=== PATIENT | male | born 1955 | race Caucasian/White ===

== ENCOUNTER 2016-11-20 11:36 | Emergency (ER) | payer MEDICAID ==
[2016-11-20 11:45] VITALS: BP 155/93; BMI 21.1
--- NOTE | 2016-11-20 12:20 | DR.GENAD ---
HPI - PCP Primary Care Physician: NFD - HPI Comment HPI Comment: S/P STROKE AND ANEURYSM LAST APRIL WITH RESIDUAL RIGHT SIDED WEAKNESS. STARTED FEELING BAD. GOT SUN BURN YESTERDAY. RUNNING FEVER FOR 2 DAYS. - Complaint/Symptoms Chief Complaint Doctors Comments: GENERALIZE WEAKNESS, FEVER AND SUN BURN TIMES 2 DAYS. Chief Complaint:: PATIENTS FAMILY STATED HE HAD A STROKE BACKLAST APRIL, AND HAS BEEN IN [place]. RETURN HOME 3 WEEKS AGO, HAS BEEN RUNNING A FEVER, PALE AND FEELING BAD PER HIS . - Nurses notes reviewed Nurses Notes Review: Yes - Source History Provided: Family Member - Mode of Arrival Mode of Arrival: Wheelchair - Timing Onset of Chief Complaint: 11/19/16 Came on: Suddenly - Duration Duration: Constant Duration: Days - Severity Severity: Moderate PMH - PMH Past Medical History: Yes Past Medical History: Depression, GERD, Hypertension, Seizures Past Surgical History: Yes Past Surgical History Comment: HERNIA, SKULL REMOVED FROM SHREYAS BLEED - Family History History of Family Medical Conditions: No - Social History Does patient currently use any type of tobacco product: Yes Have you used tobacco products in the last 12 months: Yes Type of Tobacco Use: Cigarettes How many years tobacco product used: 25 Does any household member use tobacco: No Alcohol Use: None Do you use any recreational Drugs:: No Lives With: Family Lives Where: Home - infectious screening In the last 2 months have you had wt loss of >10#?: NO Have you had fever, night sweats or hemotysis?: No Have you traveled outside the country in the last 6 months?: No Isolation: Standard ROS - Review of Systems Constitutional: Fever, Malaise, Weakness, Fatigue, Other (SUN BURN). negative: Chills Eyes: negative: Eye Pain, Blurred Vision, Discharge ENTM: No Symptoms Reported. negative: Ear Pain, Nose Discharge, Nose Congestion , Throat Pain Respiratoy: Non-Productive Cough. negative: Productive Cough, Short of Breath, Wheezing, Hemoptysis Cardiovascular: Chest Pain, Edema. negative: Palpitations, Syncope Gastrointestinal/Abdominal: No Symptoms Reported. negative: Abdominal Pain, Constipation, Diarrhea, Nausea, Vomiting Genitourinary: Pain. negative: Hematuria, Bleeding Neurological: Headache, Pre-existing Deficit, Weakness, Dizziness, Speech Problem Musculoskeletal: Back Pain, Muscle Pain Integumentary: Other (FIRST DEGREE SUN BURN.) Hematologic/Lymphatic: Easy Bleeding, Easy Bruising Endocrine: negative: Flushing, Increased Thirst, Increased Urine All Other Systems: Reviewed and Negative PE - Vital Signs Vitals: Temperature 100.2 F Pulse Rate 114 Respiratory Rate 16 Blood Pressure 155/93 O2 Sat by Pulse Oximetry 100 - General Limitations: No Limitations, Other (DYSARTHRIA) General Appearance: Alert - Head Head Exam: Other (POST CRANIOTOMY WITH SCARS.) - Eyes Eye exam: PERRL. negative: Scleral Icterus, Conjunctival Injection - ENT ENT Exam: Normal External Ear Exam External Ear Exam: Normal External Inspection TM/Canal Exam: Bilateral Normal Nose Exam: Normal Nose Exam Mouth Exam: Normal Inspection Throat Exam: Normal Inspection - Neck Neck Exam: Trachea Midline - Chest Chest Inspection: Symmetric Chest Wall Rise - Respiratory Respiratory Exam: negative: Chest Wall Tenderness, Respiratory Distress Respiratory Exam: Bilateral Rhonchi, Lower Rhonchi - Cardiovascular Cardiovascular Exam: Regular Rate, Normal Rhythm, Normal Heart Sounds - Abdominal Exam Abdominal Exam: Normal Bowel Sounds, Soft. negative: Tenderness - Extremities Extremities Exam: Tenderness, Edema, Joint Swelling - Back Back Exam: Paraspinal Tenderness - Neurologic Neurological Exam: Alert. negative: Oriented X3 (TO PERSON) - Psychiatric Psychiatric Exam: Anxious - Skin Skin Exam: Erythema, Other (FIRST DEGREE BURN FACE AND EXTREMITIES.) MDM - Additional Information Additional Information Obtained From: Family ( IN ED WITH PATIENT, HIS PRIMARY INSIDE WIRER.) - Differential Diagnosis Differential Diagnosis: GENERALIZE WEAKNESS, UTI, PNEUMONIA, FEVER, PREVIOUS RT SIDED WEAKNESS Course - Treatment Treatment: SEE ORDERS - Education/Counseling Education/Counseling: Patient, Family, Education Educated On: Treatment, Diagnosis, Needs for Follow Up ROR - Labs Reviewed Laboratory Results Reviewed?: Yes Result Diagrams: 11/20/16 12:57 11/20/16 12:57 Laboratory: WBC 9.9 X10^3/uL (3.6-10.0) 11/20/16 12:57 RBC 4.92 X10^6/uL (4.7-6.0) 11/20/16 12:57 Hgb 14.4 g/dL (13.5-18.0) 11/20/16 12:57 Hct 42.2 % (42.0-54.0) 11/20/16 12:57 MCV 85.7 fL (80.0-100.0) 11/20/16 12:57 MCH 29.2 pg (27.0-34.0) 11/20/16 12:57 MCHC 34.1 g/dL (33.0-35.0) 11/20/16 12:57 RDW 15.8 % (11.6-16.5) 11/20/16 12:57 Plt Count 197 X10^3/uL (150.0-450.0) 11/20/16 12:57 MPV 8.7 fL (7.4-11.0) 11/20/16 12:57 Neut % 73.3 % (42.0-75.0) 11/20/16 12:57 Lymph % 19.2 % (21.0-51.0) L 11/20/16 12:57 [place] % 6.5 % (0.0-13.0) 11/20/16 12:57 Eos % 0.5 % (0.9-2.9) L 11/20/16 12:57 Baso % 0.5 % (0.2-1.0) 11/20/16 12:57 Neut # 7.3 x10^3/uL (2.2-4.8) H 11/20/16 12:57 Lymph # 1.9 X10^3/uL (1.3-2.9) 11/20/16 12:57 [place] # 0.6 x10^3/uL (0.3-0.8) 11/20/16 12:57 Eos # 0.0 x10^3/uL (0.0-0.2) 11/20/16 12:57 Baso # 0.1 X10^3/uL (0.0-0.1) 11/20/16 12:57 Absolute Nucleated RBC 0.0 /100WBC 11/20/16 12:57 Sodium 140 mmol/L (136-145) 11/20/16 12:57 Corrected Sodium TNP 11/20/16 12:57 Potassium 3.2 mmol/L (3.5-5.1) L 11/20/16 12:57 Chloride 100 mmol/L (98-107) 11/20/16 12:57 Carbon Dioxide 27.0 mmol/L (21-32) 11/20/16 12:57 BUN 11 mg/dL (7-18) 11/20/16 12:57 Creatinine 1.21 mg/dL (0.70-1.30) 11/20/16 12:57 Est GFR (MDRD) Af Amer > 60 (>60) 11/20/16 12:57 Est GFR (MDRD) Non-Af > 60 (>60) 11/20/16 12:57 Glucose 90 mg/dL (65-99) 11/20/16 12:57 Calcium 10.1 mg/dL (8.5-10.1) 11/20/16 12:57 Corrected Calcium TNP 11/20/16 12:57 Total Bilirubin 0.50 mg/dL (0.2-1.0) 11/20/16 12:57 AST 17 Units/L (15-37) 11/20/16 12:57 ALT 19 Units/L (12-78) 11/20/16 12:57 Alkaline Phosphatase 164 Units/L (46-116) H 11/20/16 12:57 Total Protein 9.7 g/dL (6.4-8.2) H 11/20/16 12:57 Albumin 4.2 g/dL (3.4-5.0) 11/20/16 12:57 Globulin 5.5 g/dL (2.5-4.5) H 11/20/16 12:57 Albumin/Globulin Ratio 0.8 Ratio (1.1-2.1) L 11/20/16 12:57 Specimen Type Clean catch urine 11/20/16 12:23 Urine Color Yellow (YELLOW) 11/20/16 12:23 Urine Appearance Cloudy (CLEAR) 11/20/16 12:23 Urine pH 8.0 (5.0 - 8.0) 11/20/16 12:23 Ur Specific [place] 1.010 (1.000-1.030) 11/20/16 12:23 Urine Protein 2+ (NEGATIVE) 11/20/16 12:23 Urine Glucose (UA) Negative (NEGATIVE) 11/20/16 12:23 Urine Ketones Negative (NEGATIVE) 11/20/16 12:23 Urine Occult Blood 4+ (NEGATIVE) 11/20/16 12:23 Urine Nitrite Negative (NEGATIVE) 11/20/16 12:23 Urine Bilirubin Negative (NEGATIVE) 11/20/16 12:23 Urine Urobilinogen Normal (NORMAL) 11/20/16 12:23 Ur Leukocyte Esterase 3+ (NEGATIVE) 11/20/16 12:23 Urine RBC 15-20 /HPF (NEGATIVE) 11/20/16 12:23 Urine WBC Tntc /HPF (NEGATIVE) 11/20/16 12:23 Ur Squamous Epith Cells Rare /HPF (NEGATIVE) 11/20/16 12:23 Urine Bacteria Trace /HPF (NEGATIVE) 11/20/16 12:23 Ur Culture Indicated? Yes/culture set up 11/20/16 12:23 - XRAY XRAY Interpreted by: Radiologist XRAY Findings: REPORT DISCUSS WITH PATIENT. - Diagnosis Discharge Problem: Sunburn, Hypokalemia UTI (urinary tract infection) Qualifiers: Urinary tract infection type: site unspecified Hematuria presence: with hematuria Qualified Code(s): N39.0 - Urinary tract infection, site not specified - Discharge Plan Disposition: HOME, SELF-CARE Condition: Stable Prescriptions: Acetaminophen/Codeine Tab [TYLENOL w/CODEINE #3 (300 MG/30 MG) *] 1 tab PO Q8H PRN #12 tab PRN Reason: Pain Sulfamethoxazole-Trimethoprim [BACTRIM DS TAB 800/160 MG *] 1 tab PO BID #20 tab - Follow ups/Referrals Follow ups/Referrals: NEPTALI SPRINGER [STAFF PHYSICIAN] - 1 day NFD,None [Primary Care Provider] - 1 day - Instructions Instructions: Urinary Tract Infection, [id number], Sunburn, [id number], Hypokalemia Additional Instructions: RETURN TO ED IF WORSE.
[2016-11-20 12:33] LABS: BILIRUBIN,URINE NEGATIVE (NEGATIVE); BLOOD/HEMOGLOBIN,URINE 4+ (NEGATIVE); GLUCOSE, URINE NEGATIVE (NEGATIVE); KETONES,URINE NEGATIVE (NEGATIVE); LEUKOCYTE ESTERASE ,URINE 3+ (NEGATIVE); NITRITES,URINE NEGATIVE (NEGATIVE); PROTEIN,URINE 2+ (NEGATIVE); UROBILINOGEN,URINE NORMAL (NORMAL)
[2016-11-20 12:45] LABS: COLOR,URINE YELLOW (YELLOW)
[2016-11-20 12:46] LABS: APPEARANCE,URINE CLOUDY (CLEAR); BACTERIA,URINE TRACE /HPF (NEGATIVE); RBC,URINE 15-20 /HPF (NEGATIVE); SQUAMOUS EPITHELIAL CELL,UR RARE /HPF (NEGATIVE)
[2016-11-20] MEDS ORDERED: ZOFRAN INJ 4 MG VIAL IM ONE (12:56)
[2016-11-20] MEDS ORDERED: MORPHINE SULFATE INJ 4 MG IM ONE (12:56)
[2016-11-20] MEDS ORDERED: MORPHINE SULFATE INJ 4 MG ONE (12:59)
[2016-11-20] MEDS ORDERED: ZOFRAN INJ 4 MG VIAL ONE (12:59)
[2016-11-20 13:28] LABS: BASOPHILS # (AUTO) 0.1 X10^3/uL (0.0-0.1); BASOPHILS % (AUTO) 0.5 % (0.2-1.0); EOSINOPHILS % (AUTO) 0.5 % (0.9-2.9); HEMATOCRIT 42.2 % (42.0-54.0); HEMOGLOBIN 14.4 g/dL (13.5-18.0); LYMPHOCYTES # (AUTO) 1.9 X10^3/uL (1.3-2.9); LYMPHOCYTES % (AUTO) 19.2 % (21.0-51.0); MEAN CORPUSCULAR HEMOGLOBIN 29.2 pg (27.0-34.0); MEAN CORPUSCULAR HGB CONC 34.1 g/dL (33.0-35.0); MEAN CORPUSCULAR VOLUME 85.7 fL (80.0-100.0); MEAN PLATELET VOLUME 8.7 fL (7.4-11.0); MONOCYTES # (AUTO) 0.6 x10^3/uL (0.3-0.8); MONOCYTES % (AUTO) 6.5 % (0.0-13.0); NEUTROPHILS # (AUTO) 7.3 x10^3/uL (2.2-4.8); NEUTROPHILS % (AUTO) 73.3 % (42.0-75.0); PLATELET COUNT 197 X10^3/uL (150.0-450.0); RED BLOOD COUNT 4.92 X10^6/uL (4.7-6.0); RED CELL DISTRIBUTION WIDTH 15.8 % (11.6-16.5); WHITE BLOOD COUNT 9.9 X10^3/uL (3.6-10.0)
[2016-11-20 13:40] LABS: ALANINE AMINOTRANSFERASE 19 Units/L (12-78); ALBUMIN 4.2 g/dL (3.4-5.0); ALKALINE PHOSPHATASE 164 Units/L (46-116); ASPARTATE AMINO TRANSFERASE 17 Units/L (15-37); BLOOD UREA NITROGEN 11 mg/dL (7-18); CALCIUM 10.1 mg/dL (8.5-10.1); CHLORIDE 100 mmol/L (98-107); CREATININE 1.21 mg/dL (0.70-1.30); GLUCOSE 90 mg/dL (65-99); SODIUM 140 mmol/L (136-145); TOTAL PROTEIN 9.7 g/dL (6.4-8.2); eGFR BLACK RACES > 60 (>60); eGFR NON BLACK RACES > 60 (>60)
--- NOTE | 2016-11-20 13:58 | RAD ---
HISTORY: Chest pain Study: Single view of the chest. Comparison: None. Findings: The cardiomediastinal silhouette is normal. No focal consolidations, pleural effusions or pneumothor ax. Osseous structures demonstrate no acute abnormality. IMPRESSION: 1. No acute cardiopulmonary process. Reported By:
[2016-11-20] MEDS ORDERED: POTASSIUM CHLORIDE LIQ 20 MEQ UDC PO ONE (14:13)
[2016-11-20] MEDS ORDERED: ROCEPHIN VIAL 1 GM IM ONE (14:17)
[2016-11-20] MEDS ORDERED: ROCEPHIN VIAL 1 GM ONE (14:21)
[2016-11-20] MEDS ORDERED: POTASSIUM CHLORIDE LIQ 20 MEQ UDC ONE (14:22)
[2016-11-20] MEDS ORDERED: ROCEPHIN VIAL 2 GM IM NR (15:00)
== END 2016-11-20 15:07 | disposition home or self-care (01) ==
LOC: EDBD → MERGE 11:36 → EDBD 11:36 → ER 11:36
DX: N39.0 Urinary tract infection, site not specified (principal); E87.6 Hypokalemia; L55.9 Sunburn, unspecified; B96.4 Proteus (mirabilis) (morganii) as the cause of diseases classified elsewhere
CPT/HCPCS: 36415; 71010; 80053; 81001; 85025; 87040; 87086; 87088; 87186; 96372; 99283; J0696; J2270; J2405

== ENCOUNTER 2016-12-04 11:15 | Observation (INO) | payer MEDICAID ==
[2016-12-04 13:56] LABS: BASOPHILS # (AUTO) 0.1 X10^3/uL (0.0-0.1); EOSINOPHILS # (AUTO) 0.2 x10^3/uL (0.0-0.2); EOSINOPHILS % (AUTO) 2.5 % (0.9-2.9); HEMATOCRIT 43.9 % (42.0-54.0); HEMOGLOBIN 14.4 g/dL (13.5-18.0); LYMPHOCYTES # (AUTO) 2.9 X10^3/uL (1.3-2.9); LYMPHOCYTES % (AUTO) 34.3 % (21.0-51.0); MEAN CORPUSCULAR HEMOGLOBIN 28.4 pg (27.0-34.0); MEAN CORPUSCULAR HGB CONC 32.8 g/dL (33.0-35.0); MEAN CORPUSCULAR VOLUME 86.6 fL (80.0-100.0); MEAN PLATELET VOLUME 8.3 fL (7.4-11.0); MONOCYTES # (AUTO) 0.4 x10^3/uL (0.3-0.8); NEUTROPHILS # (AUTO) 4.9 x10^3/uL (2.2-4.8); NEUTROPHILS % (AUTO) 57.2 % (42.0-75.0); PLATELET COUNT 264 X10^3/uL (150.0-450.0); RED BLOOD COUNT 5.06 X10^6/uL (4.7-6.0); RED CELL DISTRIBUTION WIDTH 16.2 % (11.6-16.5); WHITE BLOOD COUNT 8.5 X10^3/uL (3.6-10.0)
[2016-12-04] MEDS: NORCO 10/325 TAB PO PRN ×2 (14:05→20:11)
[2016-12-04 14:16] VITALS: BMI 17.2
--- NOTE | 2016-12-04 14:19 | DR.H&P ---
H&P - History & Physical for Day of: H&P Date: 12/04/16 - Chief Complaint Chief Complaint: severe right lower leg pain, cool to touch - Allergies Allergies/Adverse Reactions: Allergies Allergy/AdvReac Type Severity Reaction Status Date / Time No Known Drug Allergy Allergy Verified 11/20/16 11:38 - History of Present Illness History of Present Illness: patient is a 60-year-old white male who was a direct admit from Dr. Kitchen's office after presenting with intractable right lower extremity pain. Right lower extremity was cold to the touch thank pedal pulses palpated. Patient was seen on 510 in the emergency room and diagnosed with UTI and the Dehydration and hypokalemia. Plan to admit for stat CTA of the lower extremities. 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 Patient can tolerate food and medications by mouth patient has chronic impaired speech. - Past Medical History Past Medical History: Anxiety, Arthritis, COPD, Coronary Artery Disease, CVA, Depression, GERD, Hypertension, Seizures - Past Surgical History Surgical History: Other (craniotomy) - Social History Does patient currently use any type of tobacco product: Yes Have you used tobacco products in the last 12 months: Yes Type of Tobacco Use: Cigarettes Does any household member use tobacco: No Alcohol Use: None Drug Use: None - Review of Systems Constitutional: Weakness Eyes: No Symptoms Reported ENT: No Symptoms Reported Respiratory: Cough, Wheezing Cardiovascular: No Symptoms Reported Gastrointestinal: No Symptoms Reported Genitourinary: No Symptoms Reported Musculoskeletal: Leg Pain Skin: No Symptoms Reported Neurological: Weakness, Change in Speech (chronic impaired speech) - Physical Exam Vital Signs: Blood Pressure 155/93 Oriented: Normal Eyes: Normal Ear: Normal Nose: Normal Throat: Normal Respiratory: RLL Exp. Wheeze, LLL Exp. Wheeze Cardiovascular: Normal : Normal Auscultation: Bowel Sounds: Normal, Other (peg tube) Palpation: Normal Tenderness: Normal Skin: Other (cool, cap refill > 3 seconds, faint pedal pulse to rle, moderate dark/ purple/red) Musculoskeletal: Right, Leg, Motor Deficit (rue, rule paralysis) Psychiatric: Anxiety Speech Pattern: Unclear Assessment/Plan - Assessment Assessment: rle pain: STAT CTA LOWER EXTREMITIES PAIN CONTROL BP AND LIPID CONTROL WEAKNESS: ADMISSION LABS, HX HYPOKALEMIA UTI: LEVAQUIN 500MG IV DAILY CXR, RESUME HOME MEDS
[2016-12-04 14:20] LABS: ALANINE AMINOTRANSFERASE 27 Units/L (12-78); ALBUMIN 4.1 g/dL (3.4-5.0); ALKALINE PHOSPHATASE 147 Units/L (46-116); ASPARTATE AMINO TRANSFERASE 33 Units/L (15-37); BLOOD UREA NITROGEN 13 mg/dL (7-18); CALCIUM 9.8 mg/dL (8.5-10.1); CARBON DIOXIDE 22.3 mmol/L (21-32); CHLORIDE 99 mmol/L (98-107); GLUCOSE 85 mg/dL (65-99); SODIUM 136 mmol/L (136-145); TOTAL PROTEIN 8.9 g/dL (6.4-8.2)
[2016-12-04 14:40] LABS: CREATININE 1.18 mg/dL (0.70-1.30); eGFR BLACK RACES > 60 (>60); eGFR NON BLACK RACES > 60 (>60)
[2016-12-04] MEDS: LEVAQUIN PREMIX IV 500 MG 500 MG/100 ML BAG IV SCH (14:52)
[2016-12-04 16:10] LABS: BILIRUBIN,URINE NEGATIVE (NEGATIVE); BLOOD/HEMOGLOBIN,URINE 2+ (NEGATIVE); GLUCOSE, URINE NEGATIVE (NEGATIVE); KETONES,URINE NEGATIVE (NEGATIVE); LEUKOCYTE ESTERASE ,URINE 2+ (NEGATIVE); NITRITES,URINE NEGATIVE (NEGATIVE); PROTEIN,URINE 2+ (NEGATIVE); UROBILINOGEN,URINE NORMAL (NORMAL)
[2016-12-04 16:25] LABS: APPEARANCE,URINE CLEAR (CLEAR); BACTERIA,URINE TRACE /HPF (NEGATIVE); COLOR,URINE YELLOW (YELLOW); RBC,URINE 0-3 /HPF (NEGATIVE); SQUAMOUS EPITHELIAL CELL,UR RARE /HPF (NEGATIVE)
--- NOTE | 2016-12-04 16:43 | RAD ---
AP chest Indication: COPD Comparison: None available Findings: Lungs are clear the heart size is normal. No focal airspace opacity, pleural effusion or p neumothorax. Heart size is normal. No acute osseous abnormality. Gastrostomy tube is partially visua lized overlying the stomach. Impression: No acute cardiopulmonary abnormality. Reported By:
[2016-12-04] MEDS ORDERED: NS 1000 ML 1,000 ML IV SCH (18:00)
[2016-12-04] MEDS ORDERED: NS 100 ML IV 100 ML IV ONE (19:29)
[2016-12-05] MEDS ORDERED: METHOCARBAMOL 500 MG PO PRN (00:34)
[2016-12-05] MEDS: CARDIZEM SR 90 MG PO SCH ×2 (02:39→08:31)
[2016-12-05] MEDS: NORCO 10/325 TAB PO PRN (04:44)
[2016-12-05] MEDS ORDERED: NEURONTIN CAP 100 MG PO SCH (06:00)
[2016-12-05] MEDS ORDERED: BUSPAR PO SCH (06:00)
[2016-12-05] MEDS ORDERED: ZANAFLEX PO PRN (06:45)
[2016-12-05] MEDS ORDERED: MORPHINE SULFATE INJ 2 MG IVP ONE (08:24)
[2016-12-05] MEDS: LEVAQUIN PREMIX IV 500 MG 500 MG/100 ML BAG IV SCH (08:31)
[2016-12-05] MEDS ORDERED: ZANTAC PO SCH (09:00)
[2016-12-05] MEDS ORDERED: SODIUM CHLORIDE PEG SCH (09:00)
[2016-12-05] MEDS ORDERED: KEPPRA TAB 500 MG PEG SCH (09:00)
[2016-12-05] MEDS ORDERED: LEVETIRACETAM PEG SCH (09:00)
[2016-12-05] MEDS ORDERED: [UNRECOGNIZED DRUG - OTHER] PEG SCH (09:00)
--- NOTE | 2016-12-05 10:55 | CT ---
HISTORY: Intractable right lower extremity pain and coldness, peripheral artery disease Study: CTA bilateral lower extremities without and with contrast Comparison: None Technique: CT angiography of the iliofemoral runoff was performed prior to and after the administra tion of intravenous contrast utilizing standard protocol with MIP 3D reformatted post processing per formed and reviewed. AEC was utilized. Findings: Incidentals: A gastrostomy tube is noted. There is a nonobstructive right renal calyceal stone. Ther e is sigmoid diverticulosis without pericolonic inflammation. Lumbar spondylosis is noted. Aorta: The infra renal abdominal aorta demonstrates diffuse atherosclerosis without aneurysm, dissec tion, or flow-limiting stenosis. The visualized portions of the mid to distal SMA are patent. The IM A is patent. Left lower extremity: There is moderate diffuse iliac atherosclerosis without aneurysm, dissection, or flow-limiting stenosis. There is a moderate amount of soft plaque within the common femoral arter y without flow-limiting stenosis. The profunda femoral artery is patent. There is focal short segmen t soft plaque in the mid SFA with approximately 40-50% stenosis. The proximal and distal SFA are wid tori patent. There is mild atherosclerotic disease of the popliteal artery without flow-limiting sten osis. There is mild atherosclerotic disease in the anterior tibial artery proximally, but it remains patent to the ankle. There is moderate atherosclerotic disease in the distal tibioperoneal trunk wi thout flow-limiting stenosis. The peroneal and posterior tibial arteries are patent at the ankle. Right lower extremity: There is mild scattered iliac atherosclerosis without flow-limiting stenosis. There is moderate soft and calcified plaque within the distal common femoral artery without flow-li miting stenosis. The profunda femoral artery is patent. There is scattered mild atherosclerotic irre gularity of the proximal and mid portions of the SFA with stenosis on the order of 40-50%. There is a large amount of mixed soft and calcified plaque within the proximal popliteal artery with segmenta l stenosis on the order of 70-80%. The trifurcation vessels demonstrate minimal atherosclerotic irre gularity and appear patent at the ankle, but there is asymmetric sluggish flow to the right lower ex tremity as compared to the left. IMPRESSION: Segmental high-grade right popliteal stenosis. Reported By:
[2016-12-05] MEDS ORDERED: MORPHINE SULFATE INJ 2 MG ONE (10:59)
--- NOTE | 2016-12-05 13:06 | PCM.DCPLAN ---
Discharge Summary - Admission Date Date of Admission: 12/04/16 - Discharge Date Discharge Date: 12/05/16 - Discharge Diagnoses Discharge Diagnosis: HTN PAD COPD OA CAD KX CXA - Hospital Course Vital Signs: Temperature 97.8 F Pulse Rate [Left Brachial] 76 Respiratory Rate 18 Blood Pressure [Left Arm] 161/103 Blood Pressure 155/93 O2 Sat by Pulse Oximetry 98 Latest Lab Results: Laboratory Last Values WBC 8.5 X10^3/uL (3.6-10.0) 12/04/16 13:45 RBC 5.06 X10^6/uL (4.7-6.0) 12/04/16 13:45 Hgb 14.4 g/dL (13.5-18.0) 12/04/16 13:45 Hct 43.9 % (42.0-54.0) 12/04/16 13:45 MCV 86.6 fL (80.0-100.0) 12/04/16 13:45 MCH 28.4 pg (27.0-34.0) 12/04/16 13:45 MCHC 32.8 g/dL (33.0-35.0) L 12/04/16 13:45 RDW 16.2 % (11.6-16.5) 12/04/16 13:45 Plt Count 264 X10^3/uL (150.0-450.0) 12/04/16 13:45 MPV 8.3 fL (7.4-11.0) 12/04/16 13:45 Neut % 57.2 % (42.0-75.0) 12/04/16 13:45 Lymph % 34.3 % (21.0-51.0) 12/04/16 13:45 [place] % 5.0 % (0.0-13.0) 12/04/16 13:45 Eos % 2.5 % (0.9-2.9) 12/04/16 13:45 Baso % 1.0 % (0.2-1.0) 12/04/16 13:45 Neut # 4.9 x10^3/uL (2.2-4.8) H 12/04/16 13:45 Lymph # 2.9 X10^3/uL (1.3-2.9) 12/04/16 13:45 [place] # 0.4 x10^3/uL (0.3-0.8) 12/04/16 13:45 Eos # 0.2 x10^3/uL (0.0-0.2) 12/04/16 13:45 Baso # 0.1 X10^3/uL (0.0-0.1) 12/04/16 13:45 Absolute Nucleated RBC 0.2 /100WBC 12/04/16 13:45 Sodium 136 mmol/L (136-145) 12/04/16 13:45 Corrected Sodium TNP 12/04/16 13:45 Potassium 4.8 mmol/L (3.5-5.1) 12/04/16 13:45 Chloride 99 mmol/L (98-107) 12/04/16 13:45 Carbon Dioxide 22.3 mmol/L (21-32) 12/04/16 13:45 BUN 13 mg/dL (7-18) 12/04/16 13:45 Creatinine 1.18 mg/dL (0.70-1.30) 12/04/16 13:45 Est GFR (MDRD) Af Amer > 60 (>60) 12/04/16 13:45 Est GFR (MDRD) Non-Af > 60 (>60) 12/04/16 13:45 Glucose 85 mg/dL (65-99) 12/04/16 13:45 Calcium 9.8 mg/dL (8.5-10.1) 12/04/16 13:45 Corrected Calcium TNP 12/04/16 13:45 Total Bilirubin 0.30 mg/dL (0.2-1.0) 12/04/16 13:45 AST 33 Units/L (15-37) 12/04/16 13:45 ALT 27 Units/L (12-78) 12/04/16 13:45 Alkaline Phosphatase 147 Units/L (46-116) H 12/04/16 13:45 Total Protein 8.9 g/dL (6.4-8.2) H 12/04/16 13:45 Albumin 4.1 g/dL (3.4-5.0) 12/04/16 13:45 Globulin 4.8 g/dL (2.5-4.5) H 12/04/16 13:45 Albumin/Globulin Ratio 0.9 Ratio (1.1-2.1) L 12/04/16 13:45 Specimen Type Clean catch urine 12/04/16 16:04 Urine Color Yellow (YELLOW) 12/04/16 16:04 Urine Appearance Clear (CLEAR) 12/04/16 16:04 Urine pH 5.0 (5.0 - 8.0) 12/04/16 16:04 Ur Specific [place] 1.020 (1.000-1.030) 12/04/16 16:04 Urine Protein 2+ (NEGATIVE) 12/04/16 16:04 Urine Glucose (UA) Negative (NEGATIVE) 12/04/16 16:04 Urine Ketones Negative (NEGATIVE) 12/04/16 16:04 Urine Occult Blood 2+ (NEGATIVE) 12/04/16 16:04 Urine Nitrite Negative (NEGATIVE) 12/04/16 16:04 Urine Bilirubin Negative (NEGATIVE) 12/04/16 16:04 Urine Urobilinogen Normal (NORMAL) 12/04/16 16:04 Ur Leukocyte Esterase 2+ (NEGATIVE) 12/04/16 16:04 Urine RBC 0-3 /HPF (NEGATIVE) 12/04/16 16:04 Urine WBC 6-10 /HPF (NEGATIVE) 12/04/16 16:04 Ur Squamous Epith Cells Rare /HPF (NEGATIVE) 12/04/16 16:04 Urine Bacteria Trace /HPF (NEGATIVE) 12/04/16 16:04 Ur Culture Indicated? No/not indicated 12/04/16 16:04 Hospital Course: Patient is a 60-year-old white male who is a direct admit one day ago from Dr. Kitchen's office with complaints of intractable right lower extremity pain. Patient has a past medical history of a hemorrhagic Magic CVA resulting in right upper and lower paralysis. Patient does have chronic impaired speech. Patient was admitted for stat CTA of the lower extremities. Patient's CBC and chemistry on admission were stable. Patient's CTA revealed bilateral lower extremity plaque formation in the arteries without significant flow impairment. Plan to continue blood pressure control, statin, aspirin. Patient stated he had pain relief after treated with by mouth pain medication. Patient will DC home today to resume home medications instructed to stop smoking and continue statin therapy. Patient to follow-up with Dr. Kitchen in 1 week patient given a pain prescription for pickup on Friday morning patient and family verbalized understanding patient condition on discharge was improved and stable - Discharge Plan Disposition: 01 HOME, SELF-CARE Condition: Stable - Follow ups/Referrals Follow ups/Referrals: RIVKA,None [Primary Care Provider] - - Instructions Additional Instructions: FOLLOW UP WITH DR KITCHEN IN ONE WEEK RX FOR NORCO TO BE PICKED UP ON FRIDAY FROM DR LAGUERRE OFFICE RESUME HOME MEDS, STOP SMOKING
[2016-12-05 14:04] VITALS: BP 128/72
== END 2016-12-05 14:06 | disposition home or self-care (01) | DRG 556 ==
LOC: OBS 11:15
PROVIDERS: ADMIT Internal Medicine; ATTEND Internal Medicine
DX: M79.604 Pain in right leg (principal); I25.10 Atherosclerotic heart disease of native coronary artery without angina pectoris; J44.9 Chronic obstructive pulmonary disease, unspecified; I10 Essential (primary) hypertension; K21.9 Gastro-esophageal reflux disease without esophagitis; F41.8 Other specified anxiety disorders; N39.0 Urinary tract infection, site not specified; I69.851 Hemiplegia and hemiparesis following other cerebrovascular disease affecting right dominant side; Z93.1 Gastrostomy status; Z86.79 Personal history of other diseases of the circulatory system; R47.89 Other speech disturbances; I73.89 Other specified peripheral vascular diseases
CPT/HCPCS: 36415; 71010; 73706; 80053; 81001; 85025; 92523; A4222; G0378; J1956; J2270

== ENCOUNTER 2017-10-13 11:12 | Emergency (ER) | payer SELFPAY ==
[2017-10-13 11:20] VITALS: BP 140/78; BMI 21.9
--- NOTE | 2017-10-13 11:58 | DR.GENAD ---
HPI - PCP Primary Care Physician: RACHEAL - Complaint/Symptoms Chief Complaint Doctors Comments: Patient was dropped off by family member for evaluation. Chief Complaint:: PATIENT FAMILY STATED THAT HE IS PARALIZED ON THE RIGHT SIDE HE HAS BEEN IN HOSPITAL WITH PNEUMONIA. HE WANTS PATIENT PLACED IN SHELTER. - Source History Provided: Friend - Mode of Arrival Mode of Arrival: Wheelchair - Timing Onset of Chief Complaint: 10/13/17 PMH - PMH Past Medical History: Yes Past Medical History: Anxiety, Arthritis, COPD, Coronary Artery Disease, CVA, Depression, GERD, Hypertension, Seizures Past Surgical History: Yes Surgical History: Other - Family History History of Family Medical Conditions: No - Social History Does patient currently use any type of tobacco product: No Have you used tobacco products in the last 12 months: No Type of Tobacco Use: None Does any household member use tobacco: No Alcohol Use: None Do you use any recreational Drugs:: No Lives With: Family Lives Where: Home - infectious screening In the last 2 months have you had wt loss of >10#?: NO Have you had fever, night sweats or hemotysis?: No Have you traveled outside the country in the last 6 months?: No Isolation: Standard ROS - Review of Systems Constitutional: No Symptoms Reported Eyes: No Symptoms Reported ENTM: No Symptoms Reported Respiratoy: No Symptoms Reported Cardiovascular: No Symptoms Reported Gastrointestinal/Abdominal: No Symptoms Reported Genitourinary: No Symptoms Reported Neurological: No Symptoms Reported Musculoskeletal: No Symptoms Reported Integumentary: No Symptoms Reported Hematologic/Lymphatic: No Symptoms Reported Endocrine: No Symptoms Reported Psychiatric: No Symptoms Reported All Other Systems: Reviewed and Negative PE - Vital Signs Vitals: Temperature 97.3 F Pulse Rate 61 Respiratory Rate 20 Blood Pressure [Left Arm] 128/72 Blood Pressure 140/78 O2 Sat by Pulse Oximetry 99 - General Limitations: Altered Mental Status, Physical Limitation General Appearance: In No Apparent Distress - Head Head Exam: Normal Inspection, Atraumatic - Eyes Eye exam: Normal Appearance, PERRL - ENT ENT Exam: Normal Exam External Ear Exam: Normal External Inspection TM/Canal Exam: Bilateral Normal Nose Exam: Normal Nose Exam Mouth Exam: Normal Inspection Throat Exam: Normal Inspection - Neck Neck Exam: Normal Inspection - Chest Chest Inspection: Normal Inspection - Respiratory Respiratory Exam: Normal Lung Sounds Bilat Respiratory Exam: Bilateral Clear to Auscultation - Cardiovascular Cardiovascular Exam: Regular Rate, Normal Rhythm - Abdominal Exam Abdominal Exam: Normal Inspection Abdominal Tenderness: negative: RUQ, RLQ, LUQ, LLQ, Epigastrium, Suprapubic, Diffuse, Mild, Moderate, Severe, Other - Extremities Extremities Exam: Normal Inspection, Full ROM - Back Back Exam: Normal Inspection - Neurologic Neurological Exam: Alert, Oriented X3, CN II-XII Intact - Psychiatric Psychiatric Exam: Normal Affect - Skin Skin Exam: Warm, Dry, Intact Course - Reevaluation 1st: Unchanged - Consultation Called: 11:30 (Dr Kitchen agreed to admit for further evaluation and placement) ROR - Labs Reviewed Laboratory Results Reviewed?: Yes (low potassium) Result Diagrams: 10/13/17 16:18 10/13/17 16:18 Laboratory: WBC 9.2 X10^3/uL (3.6-10.0) 10/13/17 16:18 RBC 4.40 X10^6/uL (4.7-6.0) L 10/13/17 16:18 Hgb 14.2 g/dL (13.5-18.0) 10/13/17 16:18 Hct 40.6 % (42.0-54.0) L 10/13/17 16:18 MCV 92.3 fL (80.0-100.0) 10/13/17 16:18 MCH 32.3 pg (27.0-34.0) 10/13/17 16:18 MCHC 35.0 g/dL (33.0-35.0) 10/13/17 16:18 RDW 14.6 % (11.6-16.5) 10/13/17 16:18 Plt Count 188 X10^3/uL (150.0-450.0) 10/13/17 16:18 MPV 8.8 fL (7.4-11.0) 10/13/17 16:18 Neut % (Auto) 60.4 % (42.0-75.0) 10/13/17 16:18 Lymph % (Auto) 30.9 % (21.0-51.0) 10/13/17 16:18 [place] % (Auto) 5.2 % (0.0-13.0) 10/13/17 16:18 Eos % (Auto) 2.7 % (0.9-2.9) 10/13/17 16:18 Baso % (Auto) 0.8 % (0.2-1.0) 10/13/17 16:18 Neut # (Auto) 5.6 x10^3/uL (2.2-4.8) H 10/13/17 16:18 Lymph # (Auto) 2.8 X10^3/uL (1.3-2.9) 10/13/17 16:18 [place] # (Auto) 0.5 x10^3/uL (0.3-0.8) 10/13/17 16:18 Eos # (Auto) 0.2 x10^3/uL (0.0-0.2) 10/13/17 16:18 Baso # (Auto) 0.1 X10^3/uL (0.0-0.1) 10/13/17 16:18 Absolute Nucleated RBC 0.0 /100WBC 10/13/17 16:18 Sodium 142 mmol/L (136-145) 10/13/17 16:18 Corrected Sodium TNP 10/13/17 16:18 Potassium 3.1 mmol/L (3.5-5.1) L 10/13/17 16:18 Chloride 104 mmol/L (98-107) 10/13/17 16:18 Carbon Dioxide 29.5 mmol/L (21-32) 10/13/17 16:18 BUN 12 mg/dL (7-18) 10/13/17 16:18 Creatinine 1.01 mg/dL (0.70-1.30) 10/13/17 16:18 Est GFR (MDRD) Af Amer > 60 (>60) 10/13/17 16:18 Est GFR (MDRD) Non-Af > 60 (>60) 10/13/17 16:18 Glucose 85 mg/dL (65-99) 10/13/17 16:18 Calcium 9.0 mg/dL (8.5-10.1) 10/13/17 16:18 Corrected Calcium TNP 10/13/17 16:18 Total Bilirubin 0.30 mg/dL (0.2-1.0) 10/13/17 16:18 AST 15 Units/L (15-37) 10/13/17 16:18 ALT 18 Units/L (12-78) 10/13/17 16:18 Alkaline Phosphatase 134 Units/L (46-116) H 10/13/17 16:18 C-Reactive Protein 9.60 mg/L (0-3.0) H 10/13/17 16:18 Total Protein 8.8 g/dL (6.4-8.2) H 10/13/17 16:18 Albumin 4.4 g/dL (3.4-5.0) 10/13/17 16:18 Globulin 4.4 g/dL (2.5-4.5) 10/13/17 16:18 Albumin/Globulin Ratio 1.0 Ratio (1.1-2.1) L 10/13/17 16:18 - Diagnosis Discharge Problem: Hypokalemia Speech impairment Qualifiers: Speech disturbance type: dysarthria Qualified Code(s): R47.1 - Dysarthria and anarthria - Discharge Plan Condition: Stable - Follow ups/Referrals Follow ups/Referrals: NEPTALI KITCHEN [Primary Care Provider] - 3 days - Instructions
[2017-10-13 16:26] LABS: BASOPHILS # (AUTO) 0.1 X10^3/uL (0.0-0.1); BASOPHILS % (AUTO) 0.8 % (0.2-1.0); EOSINOPHILS # (AUTO) 0.2 x10^3/uL (0.0-0.2); EOSINOPHILS % (AUTO) 2.7 % (0.9-2.9); HEMATOCRIT 40.6 % (42.0-54.0); HEMOGLOBIN 14.2 g/dL (13.5-18.0); LYMPHOCYTES # (AUTO) 2.8 X10^3/uL (1.3-2.9); LYMPHOCYTES % (AUTO) 30.9 % (21.0-51.0); MEAN CORPUSCULAR HEMOGLOBIN 32.3 pg (27.0-34.0); MEAN CORPUSCULAR VOLUME 92.3 fL (80.0-100.0); MEAN PLATELET VOLUME 8.8 fL (7.4-11.0); MONOCYTES # (AUTO) 0.5 x10^3/uL (0.3-0.8); MONOCYTES % (AUTO) 5.2 % (0.0-13.0); NEUTROPHILS # (AUTO) 5.6 x10^3/uL (2.2-4.8); NEUTROPHILS % (AUTO) 60.4 % (42.0-75.0); PLATELET COUNT 188 X10^3/uL (150.0-450.0); RED CELL DISTRIBUTION WIDTH 14.6 % (11.6-16.5); WHITE BLOOD COUNT 9.2 X10^3/uL (3.6-10.0)
[2017-10-13 16:32] LABS: BLOOD UREA NITROGEN 12 mg/dL (7-18); CARBON DIOXIDE 29.5 mmol/L (21-32); CHLORIDE 104 mmol/L (98-107); CREATININE 1.01 mg/dL (0.70-1.30); SODIUM 142 mmol/L (136-145); eGFR BLACK RACES > 60 (>60); eGFR NON BLACK RACES > 60 (>60)
[2017-10-13 16:36] LABS: ALANINE AMINOTRANSFERASE 18 Units/L (12-78); ALBUMIN 4.4 g/dL (3.4-5.0); ALKALINE PHOSPHATASE 134 Units/L (46-116); ASPARTATE AMINO TRANSFERASE 15 Units/L (15-37); TOTAL PROTEIN 8.8 g/dL (6.4-8.2)
== END 2017-10-13 17:15 | disposition home or self-care (01) ==
LOC: ER 11:27
DX: E23.6 Other disorders of pituitary gland (principal); R41.82 Altered mental status, unspecified; E87.1 Hypo-osmolality and hyponatremia; E86.0 Dehydration; Z87.440 Personal history of urinary (tract) infections; Z86.73 Personal history of transient ischemic attack (TIA), and cerebral infarction without residual deficits; R94.31 Abnormal electrocardiogram [ECG] [EKG]
CPT/HCPCS: 36415; 80053; 85025; 86140; 96365; 99283; A4222

== ENCOUNTER 2017-10-14 11:40 | Observation (INO) | payer SELFPAY ==
--- NOTE | 2017-10-14 13:00 | DR.GENAD ---
HPI - PCP Primary Care Physician: rob - HPI Comment HPI Comment: WORSE TODAY. PATIENT IS SLIGHTLY CONFUSE. NO FEVER. - Complaint/Symptoms Chief Complaint Doctors Comments: COUGHING FOR SEVERAL DAYS. Chief Complaint:: family member stated he has been short of breath and couging up thick stuff. - Nurses notes reviewed Nurses Notes Review: Yes - Source History Provided: Family Member - Mode of Arrival Mode of Arrival: Wheelchair - Timing Onset of Chief Complaint: 10/12/17 Came on: Gradually - Duration Duration: Constant Duration: Days - Severity Severity: Moderate PMH - PMH Past Medical History: Yes Past Medical History: Anxiety, Arthritis, COPD, Coronary Artery Disease, CVA, Depression, GERD, Hypertension, Seizures Past Surgical History: Yes Surgical History: Other - Family History History of Family Medical Conditions: No - Social History Does patient currently use any type of tobacco product: Yes Have you used tobacco products in the last 12 months: Yes Type of Tobacco Use: Cigarettes How many years tobacco product used: 20 Does any household member use tobacco: No Alcohol Use: None Do you use any recreational Drugs:: No Lives With: Family Lives Where: Home - infectious screening In the last 2 months have you had wt loss of >10#?: NO Have you had fever, night sweats or hemotysis?: No Have you traveled outside the country in the last 6 months?: No Isolation: Standard ROS - Review of Systems Constitutional: negative: Chills, Fever Eyes: No Symptoms Reported. negative: Eye Pain, Discharge ENTM: Nose Congestion. negative: Ear Pain, Nose Discharge, Throat Pain Respiratoy: Productive Cough, Short of Breath. negative: Wheezing, Hemoptysis Cardiovascular: No Symptoms Reported Gastrointestinal/Abdominal: No Symptoms Reported Genitourinary: No Symptoms Reported Neurological: Other (CONFUSE) Musculoskeletal: No Symptoms Reported Integumentary: No Symptoms Reported Hematologic/Lymphatic: No Symptoms Reported Endocrine: No Symptoms Reported All Other Systems: Reviewed and Negative Unable to Obtain Due To: Altered mental status PE - Vital Signs Vitals: Blood Pressure [Left Arm] 128/72 Blood Pressure 140/78 - General Limitations: Altered Mental Status General Appearance: Alert - Head Head Exam: Normal Inspection - Eyes Eye exam: Normal Appearance - ENT ENT Exam: Normal External Ear Exam External Ear Exam: Normal External Inspection TM/Canal Exam: Bilateral Normal Nose Exam: Normal Nose Exam Mouth Exam: Normal Inspection Throat Exam: Normal Inspection - Neck Neck Exam: Trachea Midline - Chest Chest Inspection: Symmetric Chest Wall Rise - Respiratory Respiratory Exam: Normal Lung Sounds Bilat Respiratory Exam: Bilateral Clear to Auscultation - Cardiovascular Cardiovascular Exam: Regular Rate, Normal Rhythm, Normal Heart Sounds - Abdominal Exam Abdominal Exam: Normal Bowel Sounds, Soft. negative: Tenderness - Extremities Extremities Exam: Normal Inspection - Back Back Exam: Normal Inspection - Neurologic Neurological Exam: Alert. negative: Oriented X3 - Skin Skin Exam: Normal Color MDM - Additional Information Additional Information Obtained From: Family - Differential Diagnosis Differential Diagnosis: AMS, DEBYDRATION, BRONCHITIS, PNEUMONIA Course - Treatment Treatment: SEE ORDERS. - Consultation Consultation Comments: DR. SPRINGER WILL ADMIT PATIENT. - Education/Counseling Education/Counseling: Patient, Family, Education Educated On: Diagnosis ROR - Labs Reviewed Laboratory Results Reviewed?: Yes Result Diagrams: 10/14/17 13:08 10/14/17 16:36 - XRAY XRAY Interpreted by: Radiologist XRAY Findings: REPORT DISCUSS WITH PATIENT. - Diagnosis Discharge Problem: Hypokalemia, Bronchitis HTN (hypertension) Qualifiers: Hypertension type: essential hypertension Qualified Code(s): I10 - Essential ( primary) hypertension Mental status alteration Qualifiers: Altered mental status type: transient alteration of awareness Qualified Code(s) : R40.4 - Transient alteration of awareness - Discharge Plan Disposition: ADMITTED INPATIENT Condition: Stable - Follow ups/Referrals - Instructions
[2017-10-14] MEDS ORDERED: NS 1000 ML 1,000 ML ONE (13:18)
--- NOTE | 2017-10-14 13:27 | RAD ---
HISTORY: COPD Study: Chest AP portable Comparison: 12/04/2016 Findings: The heart is within normal limits in size. The gladis are normal. The lungs are well inflated and free of acute alveolar infiltrates. No pleural effusions are identified. The bony thorax is unremarkable. IMPRESSION: Lungs clear Reported By:
[2017-10-14 13:29] LABS: ALANINE AMINOTRANSFERASE 20 Units/L (12-78); ALBUMIN 4.6 g/dL (3.4-5.0); ALKALINE PHOSPHATASE 146 Units/L (46-116); ASPARTATE AMINO TRANSFERASE 20 Units/L (15-37); BLOOD UREA NITROGEN 8 mg/dL (7-18); CALCIUM 9.6 mg/dL (8.5-10.1); CARBON DIOXIDE 31.2 mmol/L (21-32); CHLORIDE 99 mmol/L (98-107); CREATININE 0.92 mg/dL (0.70-1.30); SODIUM 139 mmol/L (136-145); TOTAL PROTEIN 9.4 g/dL (6.4-8.2); eGFR BLACK RACES > 60 (>60); eGFR NON BLACK RACES > 60 (>60)
[2017-10-14] MEDS: NS 1000 ML 1,000 ML IV SCH (13:32)
[2017-10-14 13:34] LABS: BASOPHILS # (AUTO) 0.1 X10^3/uL (0.0-0.1); BASOPHILS % (AUTO) 1.7 % (0.2-1.0); EOSINOPHILS # (AUTO) 0.2 x10^3/uL (0.0-0.2); EOSINOPHILS % (AUTO) 2.2 % (0.9-2.9); HEMATOCRIT 44.6 % (42.0-54.0); HEMOGLOBIN 15.5 g/dL (13.5-18.0); LYMPHOCYTES % (AUTO) 26.1 % (21.0-51.0); MEAN CORPUSCULAR HEMOGLOBIN 32.1 pg (27.0-34.0); MEAN CORPUSCULAR HGB CONC 34.7 g/dL (33.0-35.0); MEAN CORPUSCULAR VOLUME 92.4 fL (80.0-100.0); MEAN PLATELET VOLUME 9.4 fL (7.4-11.0); MONOCYTES # (AUTO) 0.4 x10^3/uL (0.3-0.8); MONOCYTES % (AUTO) 5.2 % (0.0-13.0); NEUTROPHILS # (AUTO) 5.1 x10^3/uL (2.2-4.8); NEUTROPHILS % (AUTO) 64.8 % (42.0-75.0); PLATELET COUNT 197 X10^3/uL (150.0-450.0); RED BLOOD COUNT 4.83 X10^6/uL (4.7-6.0); RED CELL DISTRIBUTION WIDTH 14.4 % (11.6-16.5); WHITE BLOOD COUNT 7.8 X10^3/uL (3.6-10.0)
[2017-10-14 14:22] LABS: BILIRUBIN,URINE NEGATIVE (NEGATIVE); BLOOD/HEMOGLOBIN,URINE 1+ (NEGATIVE); GLUCOSE, URINE NEGATIVE (NEGATIVE); KETONES,URINE NEGATIVE (NEGATIVE); LEUKOCYTE ESTERASE ,URINE NEGATIVE (NEGATIVE); NITRITES,URINE NEGATIVE (NEGATIVE); PROTEIN,URINE NEGATIVE (NEGATIVE); UROBILINOGEN,URINE NORMAL (NORMAL)
[2017-10-14] MEDS ORDERED: K-LYTE EFFERVESCENT PO ONE (14:36)
[2017-10-14] MEDS ORDERED: K-LYTE EFFERVESCENT ONE (14:39)
[2017-10-14 14:42] LABS: APPEARANCE,URINE CLEAR (CLEAR); COLOR,URINE YELLOW (YELLOW)
[2017-10-14 14:44] LABS: BACTERIA,URINE TRACE /HPF (NEGATIVE); RBC,URINE 0-2 /HPF (NONE SEEN); SQUAMOUS EPITHELIAL CELL,UR RARE /HPF (NEGATIVE)
[2017-10-14] MEDS ORDERED: BUTT CREAM (COMPOUND) TOP PRN (16:56)
[2017-10-14] MEDS ORDERED: POTASSIUM CHL 60 MEQ/NS 0.45% 500 ML IV PRN (17:16)
[2017-10-14] MEDS ORDERED: MAGNESIUM SULFATE 1 GM/100 mL PREMIX 1 GM/100 ML BAG IV PRN (17:16)
[2017-10-14] MEDS ORDERED: K-RIDER 10 MEQ/NS 100 ML 10 MEQ/100 ML BAG IV PRN (17:16)
[2017-10-14] MEDS ORDERED: POTASSIUM CHLORIDE LIQ 20 MEQ UDC PO PRN (17:16)
[2017-10-14] MEDS ORDERED: POTASSIUM CHL 40 MEQ/NS 0.45% 500 ML IV PRN (17:16)
[2017-10-14] MEDS ORDERED: K-LYTE EFFERVESCENT PO PRN (17:16)
[2017-10-14] MEDS: ZITHROMAX INJ 500 MG VIAL 500 MG in NS 250 ML IV 250 ML IV SCH (17:28)
[2017-10-14] MEDS: NORCO 7.5/325 MG TAB PO PRN (17:28)
[2017-10-14] MEDS: DUONEB 0.5 MG/3 MG NEB SCH (21:53)
[2017-10-15] MEDS: DUONEB 0.5 MG/3 MG NEB SCH ×3 (05:40→21:49)
[2017-10-15 06:17] LABS: BASOPHILS # (AUTO) 0.1 X10^3/uL (0.0-0.1); BASOPHILS % (AUTO) 0.8 % (0.2-1.0); EOSINOPHILS # (AUTO) 0.3 x10^3/uL (0.0-0.2); EOSINOPHILS % (AUTO) 3.6 % (0.9-2.9); HEMATOCRIT 38.3 % (42.0-54.0); HEMOGLOBIN 13.5 g/dL (13.5-18.0); LYMPHOCYTES # (AUTO) 3.4 X10^3/uL (1.3-2.9); LYMPHOCYTES % (AUTO) 45.1 % (21.0-51.0); MEAN CORPUSCULAR HEMOGLOBIN 32.3 pg (27.0-34.0); MEAN CORPUSCULAR HGB CONC 35.2 g/dL (33.0-35.0); MEAN CORPUSCULAR VOLUME 91.9 fL (80.0-100.0); MEAN PLATELET VOLUME 9.3 fL (7.4-11.0); MONOCYTES # (AUTO) 0.6 x10^3/uL (0.3-0.8); MONOCYTES % (AUTO) 7.8 % (0.0-13.0); NEUTROPHILS # (AUTO) 3.2 x10^3/uL (2.2-4.8); NEUTROPHILS % (AUTO) 42.7 % (42.0-75.0); PLATELET COUNT 168 X10^3/uL (150.0-450.0); RED BLOOD COUNT 4.17 X10^6/uL (4.7-6.0); RED CELL DISTRIBUTION WIDTH 14.2 % (11.6-16.5); WHITE BLOOD COUNT 7.5 X10^3/uL (3.6-10.0)
[2017-10-15 06:22] LABS: ALANINE AMINOTRANSFERASE 16 Units/L (12-78); ALBUMIN 3.7 g/dL (3.4-5.0); ALKALINE PHOSPHATASE 109 Units/L (46-116); ASPARTATE AMINO TRANSFERASE 14 Units/L (15-37); BLOOD UREA NITROGEN 12 mg/dL (7-18); CALCIUM 8.9 mg/dL (8.5-10.1); CARBON DIOXIDE 29.1 mmol/L (21-32); CHLORIDE 104 mmol/L (98-107); CREATININE 1.06 mg/dL (0.70-1.30); SODIUM 144 mmol/L (136-145); TOTAL PROTEIN 7.7 g/dL (6.4-8.2); eGFR BLACK RACES > 60 (>60); eGFR NON BLACK RACES > 60 (>60)
[2017-10-15] MEDS: ZITHROMAX INJ 500 MG VIAL 500 MG in NS 250 ML IV 250 ML IV SCH (09:36)
[2017-10-15 10:38] VITALS: BMI 17.4
--- NOTE | 2017-10-15 13:41 | CT ---
HISTORY: Left-sided headache, history of CVA Study: CT brain without contrast Comparison: None Technique: Multiple axial images of the brain were obtained from the skull base to the vertex without administra tion of IV contrast. Dose reduction techniques including Automated Exposure Control (AEC) and adjust ment of mA and kV were utilized. Findings: There is a large left-sided craniotomy defect with prosthetic bone flap in place. Subjacent to the fl ap there is a CSF density extra-axial collection overlying the left convexity measuring approximately 7.4 mm in width. Correlation with any previous cross-sectional imaging would be beneficial to evalua te for interval change or stability. There is encephalomalacia in the left parietal and temporal lobe s. There is background cerebral volume loss and periventricular/subcortical white matter disease like ly on the basis of microvascular ischemic changes. No evidence of hydrocephalus. No evidence of hemor rhage, significant midline shift or mass effect is appreciated. The paranasal sinuses and mastoid air cells are clear. IMPRESSION: 1. Post left craniotomy with left parietal/temporal lobe encephalomalacia and CSF density extra-axial collection subjacent to the prosthetic bone flap as described. Correlation with any previous cross-s ectional imaging would be beneficial to evaluate for interval change or stability. 2. Background cerebral volume loss and microvascular ischemic changes. Reported By:
[2017-10-15] MEDS: NORCO 7.5/325 MG TAB PO PRN (14:16)
[2017-10-15] MEDS ORDERED: LOVENOX INJ 40 MG SYR SC SCH (16:00)
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
[2017-10-15] MEDS: NS 1000 ML 1,000 ML IV SCH (17:36)
[2017-10-15] MEDS ORDERED: TYLENOL 325 MG TAB PO PRN (18:24)
[2017-10-16] MEDS: DUONEB 0.5 MG/3 MG NEB SCH (05:39)
[2017-10-16 06:06] LABS: BASOPHILS % (AUTO) 0.8 % (0.2-1.0); EOSINOPHILS # (AUTO) 0.3 x10^3/uL (0.0-0.2); EOSINOPHILS % (AUTO) 4.8 % (0.9-2.9); HEMATOCRIT 37.9 % (42.0-54.0); HEMOGLOBIN 13.2 g/dL (13.5-18.0); LYMPHOCYTES # (AUTO) 2.9 X10^3/uL (1.3-2.9); LYMPHOCYTES % (AUTO) 44.7 % (21.0-51.0); MEAN CORPUSCULAR HEMOGLOBIN 32.1 pg (27.0-34.0); MEAN CORPUSCULAR HGB CONC 34.8 g/dL (33.0-35.0); MEAN CORPUSCULAR VOLUME 92.3 fL (80.0-100.0); MEAN PLATELET VOLUME 9.4 fL (7.4-11.0); MONOCYTES # (AUTO) 0.5 x10^3/uL (0.3-0.8); MONOCYTES % (AUTO) 8.1 % (0.0-13.0); NEUTROPHILS # (AUTO) 2.7 x10^3/uL (2.2-4.8); NEUTROPHILS % (AUTO) 41.6 % (42.0-75.0); PLATELET COUNT 148 X10^3/uL (150.0-450.0); RED BLOOD COUNT 4.11 X10^6/uL (4.7-6.0); RED CELL DISTRIBUTION WIDTH 14.3 % (11.6-16.5); WHITE BLOOD COUNT 6.4 X10^3/uL (3.6-10.0)
[2017-10-16 06:42] LABS: ALANINE AMINOTRANSFERASE 15 Units/L (12-78); ALBUMIN 3.7 g/dL (3.4-5.0); ALKALINE PHOSPHATASE 103 Units/L (46-116); ASPARTATE AMINO TRANSFERASE 16 Units/L (15-37); BLOOD UREA NITROGEN 10 mg/dL (7-18); CARBON DIOXIDE 27.2 mmol/L (21-32); CHLORIDE 106 mmol/L (98-107); CREATININE 0.88 mg/dL (0.70-1.30); SODIUM 143 mmol/L (136-145); TOTAL PROTEIN 7.5 g/dL (6.4-8.2); eGFR BLACK RACES > 60 (>60); eGFR NON BLACK RACES > 60 (>60)
[2017-10-16] MEDS: ZITHROMAX INJ 500 MG VIAL 500 MG in NS 250 ML IV 250 ML IV SCH (09:06)
[2017-10-16] MEDS: NORCO 7.5/325 MG TAB PO PRN ×2 (09:07→13:25)
[2017-10-16] MEDS ORDERED: CATAPRES TAB 0.1 MG PO ONE (11:50)
[2017-10-16 13:44] VITALS: BP 138/55
[2017-10-20] MEDS ORDERED: NORVASC TAB 5 MG ONE (16:26)
== END 2017-10-16 14:12 ==
LOC: ER 11:59 → MED/SURG 13:42
PROVIDERS: ADMIT Internal Medicine; ATTEND Internal Medicine
DX: J20.9 Acute bronchitis, unspecified (principal); R41.82 Altered mental status, unspecified; E87.6 Hypokalemia; I67.9 Cerebrovascular disease, unspecified; I69.351 Hemiplegia and hemiparesis following cerebral infarction affecting right dominant side; Z60.9 Problem related to social environment, unspecified; I10 Essential (primary) hypertension; R47.1 Dysarthria and anarthria; R62.7 Adult failure to thrive; Z86.73 Personal history of transient ischemic attack (TIA), and cerebral infarction without residual deficits
CPT/HCPCS: 36415; 70450; 71045; 80053; 81001; 83735; 84132; 85025; 94640; 94760; 96365; 97535; 99284; 99285; A4222; G0378; J0456; J1650; J7620